=== PATIENT | female | born 1975 ===

== ENCOUNTER 2017-06-05 06:06 | Emergency (ER) | payer OTHER ==
[2017-06-05 06:06] VITALS: BMI 31.3
[2017-06-05 07:33] VITALS: RESP 18; O2SAT 99
[2017-06-05 08:30] VITALS: BP 128/84; PULSE 84; TEMP 98.4
--- NOTE | 2017-06-05 10:05 | ED PDOC ---
Arrival/HPI - General Chief Complaint: ENT Problem Time Seen by Provider: 06/05/17 07:31 Historian: Patient - History of Present Illness Narrative History of Present Illness (Text): 06/05/17 10:02 Keya Campos is a 41 year old female, with no significant past medical history, who presents to the emergency department complaining of right ear pain since last night. Patient denies any fevers, chills, chest pain, shortness of breath, abdominal pain, nausea, vomiting, diarrhea, back pain, neck pain, trauma , headache, dizziness, or any other complaint. Time/Duration: Other (last night) Symptom Onset: Gradual Symptom Course: Unchanged Activities at Onset: Light Context: Home Past Medical History - Provider Review Nursing Documentation Reviewed: Yes - Infectious Disease Hx of Infectious Diseases: None - Tetanus Immunization Tetanus Immunization: Unknown - Endocrine/Metabolic Hx Hypothyroidism: Yes - Psychiatric Hx Substance Use: No - Surgical History Hx Tonsillectomy: Yes Hx Tubal Ligation: Yes - Anesthesia Hx Anesthesia: Yes Hx Anesthesia Reactions: No - Suicidal Assessment Feels Threatened In Home Enviroment: No Family/Social History - Physician Review Nursing Documentation Reviewed: Yes Family/Social History: Unknown Family HX Smoking Status: Never Smoked Hx Alcohol Use: No Hx Substance Use: No Hx Substance Use Treatment: No Allergies/Home Meds Allergies/Adverse Reactions: Allergies cefazolin Allergy (Verified 06/05/17 06:19) RASH Home Medications: Home Meds Medication Instructions Recorded Confirmed Levothyroxine Sodium 0.088 mg PO DAILY 07/10/13 06/05/17 Review of Systems - Physician Review All systems were reviewed & negative as marked: Yes - Review of Systems Constitutional: Normal. absent: Fevers Eyes: Normal ENT: Tinnitus Respiratory: Normal. absent: SOB, Cough Cardiovascular: Normal. absent: Chest Pain Gastrointestinal: Normal. absent: Abdominal Pain Genitourinary Female: Normal. absent: Dysuria, Frequency, Hematuria Musculoskeletal: Normal. absent: Back Pain, Neck Pain Skin: Normal. absent: Rash Neurological: Normal. absent: Headache, Dizziness Endocrine: Normal Hemo/Lymphatic: Normal Psychiatric: Normal Physical Exam Vital Signs Reviewed: Yes Vital Signs Temp Pulse Resp BP Pulse Ox 06/05/17 08:28 98.4 F 84 18 128/84 99 06/05/17 06:06 98.8 F 98 H 18 122/68 99 Temperature: Afebrile Blood Pressure: Normal Pulse: Regular Respiratory Rate: Normal Appearance: Positive for: Well-Appearing, Non-Toxic, Comfortable Pain Distress: None Mental Status: Positive for: Alert and Oriented X 3 - Systems Exam Head: Present: Atraumatic, Normocephalic Pupils: Present: PERRL Extroacular Muscles: Present: EOMI Conjunctiva: Present: Normal Ears: Present: Erythema (Right TM erythema,right ear canal erythema). No: NORMAL TM, Normal Canal, TM Bulging, Fluid Mouth: Present: Moist Mucous Membranes Neck: Present: Normal Range of Motion Respiratory/Chest: Present: Clear to Auscultation, Good Air Exchange. No: Respiratory Distress, Accessory Muscle Use Cardiovascular: Present: Regular Rate and Rhythm, Normal S1, S2. No: Murmurs Abdomen: Present: Normal Bowel Sounds. No: Tenderness, Distention, Peritoneal Signs Back: Present: Normal Inspection Upper Extremity: Present: Normal Inspection. No: Cyanosis, Edema Lower Extremity: Present: Normal Inspection. No: Edema Neurological: Present: GCS=15, CN II-XII Intact, Speech Normal Skin: Present: Warm, Dry, Normal Color. No: Rashes Psychiatric: Present: Alert, Oriented x 3, Normal Insight, Normal Concentration Medical Decision Making ED Course and Treatment: 06/05/17 10:06 Impression: 41 year old female presents to the emergency department complaining of right ear pain since last night. Plan: -- Reassess and disposition Progress Notes: Patient agrees to follow up with PMD. - Scribe Statement The provider has reviewed the documentation as recorded by the Sagar Scruggs All medical record entries made by the Laurenibpeter were at my direction and personally dictated by me. I have reviewed the chart and agree that the record accurately reflects my personal performance of the history, physical exam, medical decision making, and the department course for this patient. I have also personally directed, reviewed, and agree with the discharge instructions and disposition. Disposition/Present on Arrival - Present on Arrival Any Indicators Present on Arrival: No History of DVT/PE: No History of Uncontrolled Diabetes: No Urinary Catheter: No History of Decub. Ulcer: No History Surgical Site Infection Following: None - Disposition Have Diagnosis and Disposition been Completed?: Yes Diagnosis: Otitis media Disposition: HOME/ ROUTINE Disposition Time: 07:30 Condition: GOOD Discharge Instructions (ExitCare): Ear Infections (Otitis Media) (DC) Additional Instructions: Thank you for letting us take care of you today. The emergency medical care you received today was directed at your acute symptoms. If you were prescribed any medication, please fill it and take as directed. It may take several days for your symptoms to resolve. Return to the Emergency Department if your symptoms worsen, do not improve, or if you have any other problems. Please contact your doctor or call one of the physicians/clinics you have been referred to that are listed on the Patient Visit Information form that is included in your discharge packet. Bring any paperwork you were given at discharge with you along with any medications you are taking to your follow up visit. Our treatment cannot replace ongoing medical care by a primary care provider (PCP) outside of the emergency department. Thank you for allowing the [facility] team to be part of your care today. Follow up with your primary care doctor in 2-3 days for re-evaluation and further management. Prescriptions: Azithromycin [Zithromax] 250 mg PO DAILY #6 tab Ibuprofen [Motrin] 600 mg PO Q6 PRN #20 tab PRN Reason: Pain, Moderate (4-7) Referrals: [facility] Req, [Primary Care Provider] - Follow up with primary Forms: [employer] (Turkish)
== END 2017-06-05 18:41 | disposition home or self-care (01) ==
LOC: ED 06:06
DX: H66.91 Otitis media, unspecified, right ear (principal)